=== PATIENT | male | born 1950 | race Caucasian/White ===

== ENCOUNTER → 2018-04-25 00:05 | Outpatient (CLI) | payer MEDICARE ==
[2018-04-25 00:36] LABS: CHOL - HDL RATIO 2.7 ratio (2.3-4.9); LDL-HDL RATIO 1.6 ratio (1.5-3.5)
== END | disposition home or self-care (01) ==
LOC: D.LABREF 00:05
PROVIDERS: Internal Medicine Cardiovascular Disease
DX: I10 Essential (primary) hypertension (principal)

== ENCOUNTER → 2018-06-01 16:22 | Outpatient (CLI) | payer MEDICARE ==
[2018-06-01 16:56] LABS: ALT (SGPT) 29 U/L (10-68); CREATINE KINASE 102 UL (21-232)
== END | disposition home or self-care (01) ==
LOC: D.LABREF 16:22
PROVIDERS: Internal Medicine Cardiovascular Disease
DX: E78.5 Hyperlipidemia, unspecified (principal)

== ENCOUNTER → 2018-08-30 18:11 | Outpatient (CLI) | payer MEDICARE ==
[2018-08-30 18:50] LABS: CHOL - HDL RATIO 2.4 ratio (2.3-4.9); LDL-HDL RATIO 1.3 ratio (1.5-3.5)
== END | disposition home or self-care (01) ==
LOC: D.LABREF 18:11
PROVIDERS: Internal Medicine Cardiovascular Disease
DX: E78.5 Hyperlipidemia, unspecified (principal)

== ENCOUNTER → 2018-11-15 09:32 | Outpatient (CLI) | payer MEDICARE, OTHER | END | disposition home or self-care (01) | LOC: D.MRI 09:32 | DX: M25.561 Pain in right knee (principal) ==